=== PATIENT | female | born 1985 | race African-American/Black ===

== ENCOUNTER 2021-07-19 05:19 | Inpatient (IN) ==
[2021-07-19] MEDS ORDERED: OXYTOCIN 30 UNITS/500 ML BAG IV PRN ×3 (06:23→19:56)
--- NOTE | 2021-07-19 06:33 | History & Physical Report ---
Date of Service July 19, 2021 Assessment & Plan (1) Uterine contractions at greater than 20 weeks of gestation: Plan: 35-year-old -0-0-1 at 40 weeks and 1 day of gestation presenting with contractions and cervical change, Vital signs stable afebrile, heart rate reassuring, GBS negative, Plan to admit, monitor, IV fluids, augment with Pitocin or AROM as needed and anticipate All questions were answered. History of Present Illness Primary Care Provider: Nickolas Ervin MD Patient is a 35-year-old -0-0-1 at 40 weeks and 1 day of gestation who has been feeling contractions since 2 AM this morning they have been every 3 to 5 minutes and kept her up from sleeping. No leakage of fluid or vaginal bleeding. She reports good movements. Her has been uncomplicated except hemoglobin of 9.7 at 27 weeks and she has been on iron. Her cervix was 3 to 4 cm dilated 50% effaced when she first came and checked by her nurse. heart rate was category 1. She then had an episode of minimal variability with 1 variable deceleration with quick recovery. I just checked her and her cervix changed to 5 cm, 70% with bulging bag and head is ballotable. heart rate had an acceleration after vaginal exam. And now she is being admitted. GBS is negative. Allergies Allergy/AdvReac Type Severity Reaction Status Date / Time No Known Allergies Allergy Unverified 02/24/18 13:42 Home Medications Medication Instructions Recorded Confirmed Type pediatric multivit no.79-ferrous 2 tab PO DAILY 05/08/18 07/19/21 History fumarate 18 mg iron chewable tablet (Flintstones with Iron) ferrous sulfate 325 mg (65 mg 325 mg PO DAILY 07/19/21 07/19/21 History iron) tablet (iron) Patient History Medical History Anemia Anxiety GERD (gastroesophageal reflux disease) Surgical History [place] teeth extracted Family History Other No pertinent family history Social History Smoking Status: Former smoker Hx Alcohol Use: No Hx Substance Use: No Preferred Language: Vietnamese Communication Ability: Effective [place] Required: No Beliefs That Will Affect Care: None marital status: Single Current Living Situation: Family Feels Safe at Home: Yes Safety Concerns: Feels Safe At This Time Assistive Devices: Glasses OB History Full-term in 2019. [employer] History No history of STDs, no history of chlamydia, gonorrhea, herpes Review of Systems as per Subjective / HPI Physical Exam Constitutional: WD/WN, vitals as above well developed and well nourished Not in acute distress Genitourinary: normal external appearance OB Exam Abdomen: + vertex Manual OB Exam: + cervical dilation 5 cm, + cervical effacement 70% and + station high (Ballotable head) OB Exam Monitor Tracing: + external uterine monitor used and + category I Bulging bag Results & Data ([facility]) Vital Signs (Past 12 Hours) Vital Signs Temp Pulse Resp BP 07/19/21 05:37 37.0 C 88 18 112/63 07/19/21 05:34 88 112/63
[2021-07-19 07:17] LABS: Hematocrit (blood only) 33.3 % (37-47); Hemoglobin 10.5 g/dL (12.0-16.0); Mean Corpuscular Hemoglobin 27.1 pg (25-34); Mean Corpuscular Hgb Conc 31.5 g/dL (32-36); Mean Corpuscular Volume 85.8 fL (80-100); Mean Platelet Volume 10.8 fL (7.4-10.4); Platelet Count 238 K/uL (130-400); RDW Coefficient of Variation 18.2 % (11.5-14.5); RDW Standard Deviation 57.3 fL (36.4-46.3); Red Blood Count 3.88 M/uL (4.2-5.4); White Blood Count 8.34 K/uL (4.8-10.8)
--- NOTE | 2021-07-19 08:47 | Labor Progress Brief Note ---
Date of Service July 19, 2021 Assessment & Plan Admission and Anticipated Discharge Date Admission Date: July 19, 2021 Physical Exam Genitourinary: Manual OB Exam: + cervical dilation 4 cm and 5 cm, + cervical effacement 50% and + station -2 OB Exam Monitor Tracing: + external FHT monitor used, + external uterine monitor used, + category I and + normal FHT variability EFW 7-8 lbs. will start Oxytocin to augment contractions Results & Data ([facility]) Vital Signs (Past 12 Hours) Vital Signs Temp Pulse Resp BP 07/19/21 07:20 37.3 C 20 07/19/21 07:02 96 H 110/72 07/19/21 05:37 37.0 C 88 18 112/63 07/19/21 05:34 88 112/63
[2021-07-19] MEDS: LACTATED RINGER'S 1,000 ML IV PRN ×3 (09:54→18:05)
[2021-07-19] MEDS ORDERED: SODIUM CHLORIDE 0.9% INJ 10 ML VIAL ONE (11:53)
[2021-07-19] MEDS ORDERED: ePHEDrine sulfate 50 MG/ML AMP ONE (11:53)
[2021-07-19] MEDS ORDERED: fentaNYL citrate 100 MCG/2 ML VIAL ONE (11:53)
[2021-07-19] MEDS ORDERED: fentaNYL 2MCG/ML ROPIVACAINE 1.25MG/ML 100 ML BAG EPI ONE (11:54)
[2021-07-19] MEDS ORDERED: BUPIVACAINE 0.25% 30 ML VIAL ONE (11:54)
[2021-07-19] MEDS ORDERED: diphenhydrAMINE 50 MG/ML VIAL IV PRN (12:58)
[2021-07-19] MEDS ORDERED: ONDANSETRON INJ 2 MG/ML 2 ML VIAL IV PRN (12:58)
[2021-07-19] MEDS ORDERED: fentaNYL 2MCG/ML ROPIVACAINE 1.25MG/ML 100 ML BAG EPI PRN (12:58)
[2021-07-19] MEDS ORDERED: NALBUPHINE HCL INJ 10 MG/ML AMP IV PRN (12:58)
[2021-07-19] MEDS ORDERED: NALOXONE HCL 1 MG in SODIUM CHLORIDE 0.9% 1000ML 1,000 ML IV PRN (12:58)
[2021-07-19] MEDS ORDERED: PROMETHAZINE HCL 6.25 MG in SODIUM CHLORIDE 0.9% 50 ML IV PRN (12:58)
[2021-07-19] MEDS ORDERED: NALOXONE HCL 0.4 MG/1 ML VIAL/CARP IV PRN (12:58)
[2021-07-19] MEDS ORDERED: ePHEDrine sulfate 50 MG/ML AMP IV PRN (12:58)
--- NOTE | 2021-07-19 12:58 | Anesthesiology Consultation ---
Date of Service July 19, 2021 Assessment & Plan Chart Review Chart Review: Acceptable Risk for Surgery and Patient NOT seen in Pre Admission Testing Consults Requested none ASA ASA2 Proposed Anesthesia Anesthesia Type: Labor Epidural Risk / Benefits Reviewed With: PT / POA / Parent / Guardian, Accepts Plan and Informed Consent Obtained History Height/Weight Height: 5 ft 3 in Weight: 68.039 kg Allergies Allergy/AdvReac Type Severity Reaction Status Date / Time No Known Allergies Allergy Unverified 02/24/18 13:42 Medications Home Medications Medication Instructions Recorded Confirmed Last Taken pediatric multivit no.79-ferrous 2 tab PO DAILY 05/08/18 07/19/21 07/18/21 fumarate 18 mg iron chewable tablet (Flintstones with Iron) ferrous sulfate 325 mg (65 mg 325 mg PO DAILY 07/19/21 07/19/21 07/18/21 iron) tablet (iron) Active Medications Generic Name Dose Route Start Last Admin Trade Name Freq PRN Reason Stop Dose Admin Lactated Ringer's 1,000 mls @ 150 mls/hr 07/19/21 06:23 07/19/21 12:45 Lr IV 07/21/21 06:22 125 mls/hr .Q6H40M PRN Infusion L&D Protocol Protocol Oxytocin 30 units in 500 mls @ 5 mls/hr 07/19/21 08:48 07/19/21 11:18 Pitocin IV 07/21/21 08:47 0.3 units/hr .Q24H PRN 5 mls/hr Labor Induction/Augmentation Titration Protocol 0.3 UNITS/HR Past Medical History Medical History Anemia Anxiety GERD (gastroesophageal reflux disease) Exercise / Class Metabolic Activity II 4-5 Yardwork/Stairs/Walk up hill Past Family History Family History Other No pertinent family history Past Surgical History Surgical History [place] teeth extracted Past Anesthesia History No Hx of Anesthesia Complications and No Family Hx of Anesthesia Complications History of PONV No Hx of PONV and No Hx of Motion Sickness Social History Smoking Status: Former smoker Hx Alcohol Use: No Hx Substance Use: No substance use type: does not use Physical Exam Vital Signs Last Vital Signs Temp 37.3 C 07/19/21 07:20 Pulse 89 07/19/21 12:57 Resp 20 07/19/21 07:20 BP 117/70 07/19/21 12:57 Pulse Ox 100 07/19/21 12:56 ENMT Mouth: no dentition abnormality Thyromental Distance: > or= 3.5 Finger Breadths Mallampati Class: II Neck normal visual inspection Respiratory normal respiratory effort Auscultation: lungs clear to auscultation bilaterally Cardiovascular Rate/Rhythm: regular rate and regular rhythm Psychiatric Orientation: alert Testing Laboratory Results 07/19/21 06:46
--- NOTE | 2021-07-19 13:19 | Labor Progress Brief Note ---
Date of Service July 19, 2021 Assessment & Plan Admission and Anticipated Discharge Date Admission Date: July 19, 2021 Physical Exam Genitourinary: Manual OB Exam: + cervical dilation 5 cm and 6 cm, + cervical effacement 60%, + station -1 and + amniotic fluid clear OB Exam Monitor Tracing: + external FHT monitor used, + external uterine monitor used, + category I and + normal FHT variability AROM with Amni-hook with clear fluid [facility] Data ([facility]) Vital Signs (Past 12 Hours) Vital Signs Temp Pulse Resp BP Pulse Ox 07/19/21 13:16 77 100 07/19/21 13:11 83 111/70 99 07/19/21 13:07 77 114/66 07/19/21 13:06 74 100 07/19/21 13:01 77 114/72 100 07/19/21 12:59 83 117/71 07/19/21 12:57 89 117/70 07/19/21 12:56 87 100 07/19/21 12:55 78 117/67 07/19/21 12:53 77 116/66 07/19/21 12:51 73 122/65 100 07/19/21 12:50 81 115/56 L 07/19/21 12:48 70 108/66 07/19/21 12:46 86 100 07/19/21 12:42 90 91 07/19/21 12:41 86 99 07/19/21 12:36 83 100 07/19/21 12:32 95 H 107/71 07/19/21 12:31 79 100 07/19/21 12:26 80 100 07/19/21 12:21 83 100 07/19/21 12:17 72 115/76 07/19/21 12:16 88 100 07/19/21 12:11 72 100 07/19/21 12:06 74 100 07/19/21 12:02 88 114/66 07/19/21 12:01 87 100 07/19/21 11:18 90 113/69 07/19/21 09:51 85 107/65 07/19/21 07:20 37.3 C 20 07/19/21 07:02 96 H 110/72 07/19/21 05:37 37.0 C 88 18 112/63 07/19/21 05:34 88 112/63
--- NOTE | 2021-07-19 19:26 | Labor Progress Brief Note ---
Date of Service July 19, 2021 Assessment & Plan Admission and Anticipated Discharge Date Admission Date: July 19, 2021 Physical Exam Genitourinary: Manual OB Exam: + cervical dilation 10 cm, + cervical effacement 100% and + station 0 OB Exam Monitor Tracing: + external FHT monitor used, + external uterine monitor used, + category I and + normal FHT variability will start to push Results & Data ([facility]) Vital Signs (Past 12 Hours) Vital Signs Temp Pulse Resp BP Pulse Ox 07/19/21 19:21 115 H 106/63 100 07/19/21 19:16 98 H 85 L 07/19/21 19:11 105 H 100 07/19/21 19:06 36.9 C 95 H 18 99 07/19/21 19:05 101 H 106/51 L 07/19/21 19:01 100 H 100 07/19/21 18:56 100 H 100 07/19/21 18:51 114 H 98 07/19/21 18:46 112 H 100 07/19/21 18:41 138 H 100 07/19/21 18:36 96 H 105/53 L 100 07/19/21 18:31 94 H 100 07/19/21 18:27 94 H 105/58 L 07/19/21 18:26 94 H 100 07/19/21 18:22 106 H 85 L 07/19/21 18:21 110 H 100 07/19/21 18:16 104 H 109/56 L 100 07/19/21 18:11 106 H 100 07/19/21 18:08 114 H 112/59 L 07/19/21 18:06 110 H 100 07/19/21 18:01 128 H 100 07/19/21 17:56 104 H 80 L 07/19/21 17:51 111 H 99 07/19/21 17:50 99 H 86 L 07/19/21 17:46 102 H 99 07/19/21 17:41 96 H 100 07/19/21 17:40 92 H 88 L 07/19/21 17:38 90 110/73 07/19/21 17:36 90 100 07/19/21 17:31 86 100 07/19/21 17:27 81 103/59 L 07/19/21 17:26 80 100 07/19/21 17:21 97 H 100 07/19/21 17:17 82 106/66 07/19/21 17:16 81 100 07/19/21 17:11 78 100 07/19/21 17:08 80 107/59 L 07/19/21 17:06 77 100 07/19/21 17:05 36.9 C 07/19/21 17:01 75 100 07/19/21 16:57 77 103/61 07/19/21 16:56 77 100 07/19/21 16:51 72 100 07/19/21 16:49 77 106/64 07/19/21 16:46 87 100 07/19/21 16:41 79 100 07/19/21 16:40 85 88 L 07/19/21 16:37 80 106/63 07/19/21 16:36 72 100 07/19/21 16:31 80 100 07/19/21 16:27 80 97/61 L 07/19/21 16:26 79 100 07/19/21 16:21 70 100 07/19/21 16:17 82 109/57 L 07/19/21 16:16 80 100 07/19/21 16:11 80 100 07/19/21 16:07 82 144/99 H 07/19/21 16:06 81 100 07/19/21 16:01 81 100 07/19/21 15:58 80 118/86 07/19/21 15:56 80 100 07/19/21 15:51 82 99 07/19/21 15:46 77 105/59 L 100 07/19/21 15:41 75 100 07/19/21 15:37 70 102/59 L 07/19/21 15:36 70 100 07/19/21 15:31 66 100 07/19/21 15:28 77 90/55 L 07/19/21 15:26 74 100 07/19/21 15:21 71 100 07/19/21 15:18 73 104/57 L 07/19/21 15:16 72 100 07/19/21 15:11 72 100 07/19/21 15:08 72 103/58 L 07/19/21 15:06 71 100 07/19/21 15:01 36.7 C 80 97 07/19/21 14:59 36.7 C 71 88 L 07/19/21 14:57 71 105/57 L 07/19/21 14:56 70 99 07/19/21 14:51 86 96 07/19/21 14:49 89 81 L 07/19/21 14:47 77 108/61 07/19/21 14:46 75 100 07/19/21 14:41 74 100 07/19/21 14:36 65 98/54 L 100 07/19/21 14:31 71 100 07/19/21 14:30 18 07/19/21 14:27 72 104/62 07/19/21 14:26 73 100 07/19/21 14:21 74 100 07/19/21 14:16 68 115/60 100 07/19/21 14:11 70 100 07/19/21 14:07 74 119/59 L 07/19/21 14:06 70 97 07/19/21 14:01 82 100 07/19/21 13:58 94/52 L 07/19/21 13:56 74 100 07/19/21 13:51 83 100 07/19/21 13:47 100 H 110/56 L 07/19/21 13:46 72 100 07/19/21 13:41 84 100 07/19/21 13:37 73 116/65 07/19/21 13:36 78 100 07/19/21 13:31 81 100 07/19/21 13:27 93 H 85 L 07/19/21 13:26 81 96 07/19/21 13:21 99 H 73 L 07/19/21 13:17 90 82 L 07/19/21 13:16 77 100 07/19/21 13:11 83 111/70 99 07/19/21 13:07 77 114/66 07/19/21 13:06 74 100 07/19/21 13:01 77 114/72 100 07/19/21 12:59 83 117/71 07/19/21 12:57 89 117/70 07/19/21 12:56 87 100 07/19/21 12:55 78 117/67 07/19/21 12:53 77 116/66 07/19/21 12:51 73 122/65 100 07/19/21 12:50 81 115/56 L 07/19/21 12:48 70 108/66 07/19/21 12:46 86 100 07/19/21 12:42 90 91 07/19/21 12:41 86 99 07/19/21 12:36 83 100 07/19/21 12:32 95 H 107/71 07/19/21 12:31 79 100 07/19/21 12:26 80 100 07/19/21 12:21 83 100 07/19/21 12:17 72 115/76 07/19/21 12:16 88 100 07/19/21 12:11 72 100 07/19/21 12:06 74 100 07/19/21 12:02 88 114/66 07/19/21 12:01 87 100 07/19/21 11:18 90 113/69 07/19/21 09:51 85 107/65
--- NOTE | 2021-07-19 19:53 | Delivery Summary ---
Vaginal Delivery Summary Date of Service July 19, 2021 Vaginal Delivery Summary Delivery Note live male DIANA over intact perineum with delayed cord clamping and Apgars 8/9 weight pending. Cord blood obtained followed by spontaneous delivery of intact placenta. No tears. EBL 100 ml. Final sponge and instrument count are correct. Mom and baby stable.
[2021-07-19] MEDS ORDERED: bisacodyL 10 MG SUPP PR PRN (19:56)
[2021-07-19] MEDS ORDERED: ACETAMINOPHEN 325 MG TAB PO PRN (19:56)
[2021-07-19] MEDS ORDERED: BENZOCAINE 20% AER SPR 82.5 GM CAN EXT PRN (19:56)
[2021-07-19] MEDS ORDERED: HYDROCORTISONE ACETATE 25 MG SUPP PR PRN (19:56)
[2021-07-19] MEDS ORDERED: DIPHTHERIA/TETANUS/PERTUSSIS 0.5 ML SYR/VIAL IM ONE (19:56)
[2021-07-19] MEDS ORDERED: DOCUSATE SODIUM 100 MG CAP PO SCH (21:00)
--- NOTE | 2021-07-19 22:25 | Anesthesia Procedure Note ---
Date of Service July 19, 2021 Anesthesia Post Epidural Note Vital Signs Vital Signs: Temp Pulse Resp BP Pulse Ox 36.9 C 98 H 18 116/58 L 100 07/19/21 19:06 07/19/21 21:50 07/19/21 21:35 07/19/21 21:50 07/19/21 19:42 Notes Mental Status: alert / awake / arousable Nausea / Vomiting: adequately controlled Pain: adequately controlled Airway Patency, RR, SpO2: stable & adequate BP & HR: stable & adequate Hydration State: stable & adequate Neuraxial Anesthesia: was administered and sensory block is resolving Anesthetic Complications: no major complications apparent and Pt Satisfied with anesthetic care Epidural: Removed without complications and With tip intact
[2021-07-19] MEDS: IBUPROFEN 600 MG TAB PO PRN (22:45)
[2021-07-20] MEDS: IBUPROFEN 600 MG TAB PO PRN ×2 (04:21→12:43)
[2021-07-20 07:10] LABS: Hematocrit (blood only) 30.6 % (37-47); Hemoglobin 9.8 g/dL (12.0-16.0); Mean Corpuscular Hemoglobin 27.2 pg (25-34); Mean Platelet Volume 10.9 fL (7.4-10.4); Platelet Count 212 K/uL (130-400); RDW Standard Deviation 56.4 fL (36.4-46.3); White Blood Count 14.24 K/uL (4.8-10.8)
[2021-07-20] MEDS ORDERED: FERROUS SULFATE 325 MG TAB PO SCH (08:00)
[2021-07-20] MEDS ORDERED: PRENATAL VITAMIN 1 TAB PO SCH (08:00)
[2021-07-20] MEDS ORDERED: NON-FORMULARY MEDICATION (Ferrous Sulfate [Iron] 325 mg (65 mg iron) Tablet) PO SCH (09:00)
--- NOTE | 2021-07-20 09:13 | Obstetrical Progress Note ---
Date of Service July 20, 2021 Assessment & Plan Admission and Anticipated Discharge Date Admission Date: July 19, 2021 Subjective Patient is seen and examined. She feels well, no complaints. Ambulating without dizziness Voiding without difficulty Tolerating regular diet with out N&V Bleeding is minimal No fever/ chills/ CP/ SOB/ N&V/ Leg pain Breast feeding without problems Vital Signs Temp Pulse Pulse Resp BP BP Pulse Ox 07/20/21 08:23 36.6 C 71 18 112/77 100 07/20/21 04:25 36.6 C 81 16 105/69 100 07/19/21 22:25 36.9 C 91 H 16 99/67 L 99 07/19/21 21:50 98 H 116/58 L 07/19/21 21:36 96 H 111/54 L 07/19/21 21:35 18 07/19/21 21:21 96 H 120/64 Lab Results 07/19/21 07/19/21 07/19/21 Range/Units 06:25 06:46 06:46 WBC 8.34 (4.8-10.8) K/uL RBC 3.88 L (4.2-5.4) M/uL Hgb 10.5 L (12.0-16.0) g/dL Hct 33.3 L (37-47) % MCV 85.8 (80-100) fL MCH 27.1 (25-34) pg MCHC 31.5 L (32-36) g/dL RDW Std Deviation 57.3 H (36.4-46.3) fL RDW Coeff of Gabby 18.2 H (11.5-14.5) % Plt Count 238 (130-400) K/uL MPV 10.8 H (7.4-10.4) fL SARS-CoV-2, RNA, NAAT NEGATIVE (NEGATIVE) Blood Type AB Negative Antibody Screen NEGATIVE 07/20/21 Range/Units 06:43 WBC 14.24 H (4.8-10.8) K/uL RBC 3.60 L (4.2-5.4) M/uL Hgb 9.8 L (12.0-16.0) g/dL Hct 30.6 L (37-47) % MCV 85.0 (80-100) fL MCH 27.2 (25-34) pg MCHC 32.0 (32-36) g/dL RDW Std Deviation 56.4 H (36.4-46.3) fL RDW Coeff of Gabby 18.0 H (11.5-14.5) % Plt Count 212 (130-400) K/uL MPV 10.9 H (7.4-10.4) fL SARS-CoV-2, RNA, NAAT (NEGATIVE) Blood Type Antibody Screen PE: General: Alert, orientedx3, NAD Abd: soft, NT, fundus firm, below Umbilicus Perineum intact, Lochia rubra minimal Ext; NT, no edema AP: 35 yo s/p , ppd# 1 VSS Afebrile doing well Continue routine care Desires d/c today All questions were answered Discussed when to call D/C home after 8 pm if baby will be discharged. Results & Data ([facility]) Vital Signs (Past 12 Hours) Vital Signs Temp Pulse Pulse Resp BP BP Pulse Ox 07/20/21 08:23 36.6 C 71 18 112/77 100 07/20/21 04:25 36.6 C 81 16 105/69 100 07/19/21 22:25 36.9 C 91 H 16 99/67 L 99 07/19/21 21:50 98 H 116/58 L 07/19/21 21:36 96 H 111/54 L 07/19/21 21:35 18 07/19/21 21:21 96 H 120/64
[2021-07-20] MEDS ORDERED: bisacodyL 5 MG TABEC PO SCH (20:00)
== END 2021-07-20 21:15 | disposition home or self-care (01) | DRG 807 ==
LOC: OPB 05:19 → 4S1 05:23 → 4E2 22:38
DX: Z3A.40 40 weeks gestation of pregnancy; Z87.891 Personal history of nicotine dependence; O99.02 Anemia complicating childbirth; Z37.0 Single live birth